=== PATIENT | male | born 1980 | race Caucasian/White ===

== ENCOUNTER 2021-07-31 23:02 | Emergency (ER) | payer SELFPAY | END 2021-07-31 23:57 | disposition home or self-care (01) | LOC: NAV ERS 23:02 | DX: M67.442 Ganglion, left hand (principal); F17.200 Nicotine dependence, unspecified, uncomplicated | CPT/HCPCS: 99283 ==

== ENCOUNTER 2022-10-21 16:39 | Emergency (ER) | payer SELFPAY ==
[2022-10-21] MEDS ORDERED: Bacitracin 1 PK ONE (16:52)
[2022-10-21] MEDS ORDERED: TETANUS, DIPHTHERIA TOX,ADULT (TDVAX) 0.5 ML VIAL IM ONE (16:52)
== END 2022-10-21 17:30 | disposition home or self-care (01) ==
LOC: NAV ERS 16:39
DX: S61.412A Laceration without foreign body of left hand, initial encounter (principal); F17.200 Nicotine dependence, unspecified, uncomplicated; W26.0XXA Contact with knife, initial encounter; Z23 Encounter for immunization
CPT/HCPCS: 90471; 90714